=== PATIENT | female | born 1995 | race Hispanic/Latino ===

== ENCOUNTER 2021-07-06 22:08 | Inpatient (IN) | payer MEDICAID ==
[~2021-07-06] VITALS: Ht 165.1 cm; Wt 88.0 kg
[~2021-07-06 22:08] MED LIST: PREN-154 PO
[2021-07-06] MEDS ORDERED: ROPIVACAINE 0.2% 100ML VIAL 100 ML EP PRN (22:30)
[2021-07-06] MEDS ORDERED: NALOXONE HCL 0.4 MG/1 ML ML IV PRN (22:30)
[2021-07-06] MEDS ORDERED: PROMETHAZINE HCL 25 MG/ML 1ML AMPULE IM PRN (22:30)
[2021-07-06] MEDS ORDERED: MEPERIDINE-PF 50 MG/ML SYG IVP PRN (22:30)
[2021-07-06] MEDS ORDERED: LACTATED RINGERS 500 ML 500 ML IV PRN (22:30)
[2021-07-06] MEDS ORDERED: LACTATED RINGERS 1000ML 1,000 ML IV PRN (22:30)
[2021-07-06] MEDS ORDERED: EPHEDRINE SULFATE 50 MG/ML AMPULE IVP PRN (22:30)
[2021-07-06 23:04] LABS: APPEARANCE,URINE Clear (CLEAR); BILIRUBIN,URINE Negative (NEGATIVE); COLOR,URINE Yellow (YELLOW); GLUCOSE, URINE (UA) Negative (NEGATIVE); KETONES,URINE Negative (NEGATIVE); LEUKOCYTE ESTERASE ,URINE Small (NEGATIVE); NITRATE,URINE Negative (NEGATIVE); OCCULT BLOOD,URINE Negative (NEGATIVE); PROTEIN,URINE Negative (NEGATIVE)
[2021-07-06 23:19] LABS: BACTERIA,URINE None Seen /HPF (None Seen); MUCUS,URINE Few LPF (None Seen); RBC,URINE None Seen /HPF (0-1); SQUAMOUS EPITHELIAL CELL,UR Few /HPF (0-2); WBC,URINE 0-1 /HPF (0-1)
[2021-07-06 23:20] LABS: AMORPHOUS SEDIMENT,UR Few /LPF (None Seen)
[2021-07-06 23:31] LABS: HEMATOCRIT 29.6 % (36-48); MEAN CORPUSCULAR HEMOGLOBIN 22.9 pg (27.0-33.0); MEAN CORPUSCULAR HGB CONC 31.4 g/dL (32.0-36.0); MEAN CORPUSCULAR VOLUME 72.9 fL (79-99); PLATELET COUNT (AUTO) 376 K/uL (130-400); RED BLOOD CELL COUNT(AUTO) 4.06 MIL/uL (4.00-5.50); RED CELL DISTRIBUTION WIDTH 18.2 % (11.0-15.5); WHITE BLOOD COUNT (AUTO) 9.6 K/uL (4.8-10.8)
[2021-07-06 23:45] VITALS: BP 123/67
[2021-07-06] MEDS ORDERED: FERR-82 PO (23:49)
[2021-07-07] MEDS ORDERED: OXYTOCIN-LR 20 UNITS/1000 ML 1,000 ML IV SCH ×2 (04:00→09:30)
[2021-07-07] MEDS ORDERED: OXYTOCIN 10 USP UNITS/ML ONE (07:49)
[2021-07-07] MEDS ORDERED: METHYLERGONOVINE MALEATE 0.2 MG/1 ML ML ONE (07:50)
[2021-07-07] MEDS ORDERED: MISOPROSTOL 200 MCG TABLET ONE ×2 (07:50→09:12)
[2021-07-07] MEDS ORDERED: WITCH HAZEL 1 PAD TP PRN (09:30)
[2021-07-07] MEDS ORDERED: BENZOCAINE/LANOLIN/ALOE VERA 60 ML AEROSOL TP PRN (09:30)
[2021-07-07] MEDS ORDERED: MEASLES/MUMPS/RUBELLA VACCINE, LIVE 0.5 ML/VIAL SQ PRN (09:30)
[2021-07-07] MEDS ORDERED: ACETAMINOPHEN WITH CODEINE 1 TAB TAB PO PRN (09:30)
[2021-07-07] MEDS ORDERED: DIPH,PERTUSS(ACELL),TET VAC/PF 0.5 ML VIAL IM PRN (09:30)
[2021-07-07] MEDS ORDERED: ACETAMINOPHEN 325 MG TAB PO PRN (09:30)
[2021-07-07] MEDS ORDERED: LANOLIN 30GM OINTMENT TP PRN (09:30)
[2021-07-07 11:17] VITALS: BP 121/68
[2021-07-07] MEDS: IBUPROFEN 600 MG TABLET PO PRN ×2 (11:59→18:03)
[2021-07-07 16:39] VITALS: BP 110/68
[2021-07-07 20:10] VITALS: BP 112/74
[2021-07-07] MEDS: DOCUSATE SODIUM 100 MG CAP PO SCH (20:41)
[2021-07-07 22:50] VITALS: BP 118/67
[2021-07-08 03:04] VITALS: BP 108/80
[2021-07-08 06:30] LABS: MEAN CORPUSCULAR HEMOGLOBIN 22.8 pg (27.0-33.0); MEAN CORPUSCULAR HGB CONC 30.6 g/dL (32.0-36.0); MEAN CORPUSCULAR VOLUME 74.3 fL (79-99); RED BLOOD CELL COUNT(AUTO) 4.17 MIL/uL (4.00-5.50); RED CELL DISTRIBUTION WIDTH 18.3 % (11.0-15.5); WHITE BLOOD COUNT (AUTO) 12.7 K/uL (4.8-10.8)
[2021-07-08 07:27] VITALS: BP 112/72
[2021-07-08 08:15] LABS: HEPATITIS Bs ANTIGEN SCREEN P Negative (Negative)
[2021-07-08] MEDS: DOCUSATE SODIUM 100 MG CAP PO SCH (08:37)
[2021-07-08] MEDS: IBUPROFEN 600 MG TABLET PO PRN (08:38)
[2021-07-08 11:27] VITALS: BP 120/78
== END 2021-07-08 12:10 | disposition home or self-care (01) | DRG 560 ==
LOC: LDH 22:08 → WSH 07-07 11:15
PROVIDERS: ADMIT Obstetrics & Gynecology; ATTEND Obstetrics & Gynecology
PROC: 10E0XZZ Delivery of Products of Conception, External Approach (ICD-10-PCS; principal; 2021-07-07)
PROC: 6A550ZT Pheresis of Cord Blood Stem Cells, Single (ICD-10-PCS; 2021-07-07)
PROC: 10907ZC Drainage of Amniotic Fluid, Therapeutic from Products of Conception, Via Natural or Artificial Opening (ICD-10-PCS; 2021-07-07)
PROC: 3E033VJ Introduction of Other Hormone into Peripheral Vein, Percutaneous Approach (ICD-10-PCS; 2021-07-07)
DX: O80 Encounter for full-term uncomplicated delivery (principal); O69.1XX0 Labor and delivery complicated by cord around neck, with compression, not applicable or unspecified; Z37.0 Single live birth; Z3A.39 39 weeks gestation of pregnancy
CPT/HCPCS: 36415; 81001; 85027; 86592; 86850; 86900; 86901; 87340; G0378; J2175; J2210; J2550; J2590

== ENCOUNTER 2023-02-14 04:46 | Emergency (ER) | payer OTHER, MEDICAID ==
[~2023-02-14] VITALS: Ht 165.1 cm; Wt 92.1 kg
[~2023-02-14 04:46] MED LIST changes: +FERR-82 PO
[2023-02-14 05:19] LABS: BASOPHILS % (AUTO) 0.4 % (0.0-5.0); EOSINOPHILS % (AUTO) 4.5 % (0.0-8.0); HEMATOCRIT 40.7 % (36-48); LYMPHOCYTES % (AUTO) 36.4 % (21.0-51.0); MEAN CORPUSCULAR HEMOGLOBIN 25.9 pg (27.0-33.0); MEAN CORPUSCULAR HGB CONC 32.4 g/dL (32.0-36.0); MONOCYTES % (AUTO) 6.2 % (3.0-13.0); PLATELET COUNT (AUTO) 415 K/uL (130-400); RED BLOOD CELL COUNT(AUTO) 5.09 MIL/uL (4.00-5.50); RED CELL DISTRIBUTION WIDTH 14.5 % (11.0-15.5); WHITE BLOOD COUNT (AUTO) 11.4 K/uL (4.8-10.8)
[2023-02-14] MEDS ORDERED: ONDANSETRON 4MG INJ IVP ONE (05:30)
[2023-02-14] MEDS ORDERED: MORPHINE 2 MG SYG IVP ONE (05:30)
[2023-02-14 05:36] LABS: APPEARANCE,URINE CLEAR (CLEAR); BILIRUBIN,URINE NEGATIVE (NEGATIVE); COLOR,URINE LIGHT-YELLOW (YELLOW); CREATININE 0.8 mg/dL (0.5-1.5); GLUCOSE, URINE (UA) NEGATIVE (NEGATIVE); KETONES,URINE NEGATIVE (NEGATIVE); LEUKOCYTE ESTERASE ,URINE NEGATIVE Leu/uL (NEGATIVE); NITRATE,URINE NEGATIVE (NEGATIVE); OCCULT BLOOD,URINE NEGATIVE (NEGATIVE); POTASSIUM 3.5 mmol/L (3.5-5.1); PROTEIN,URINE 10 mg/dL (NEGATIVE); UROBILINOGEN,URINE 0.2 mg/dL (0.2-1.0)
[2023-02-14 05:41] LABS: ALBUMIN 3.9 g/dL (3.5-5.0); HCG,QUALITATIVE URINE NEGATIVE (NEGATIVE); TOTAL PROTEIN, SERUM 8.2 g/dL (6.0-8.3)
[2023-02-14 05:50] LABS: BACTERIA,URINE RARE /HPF (None Seen); MUCUS,URINE RARE LPF (None Seen); SQUAMOUS EPITHELIAL CELL,UR RARE /HPF (0-2); WBC,URINE 0-1 /HPF (0-1)
[2023-02-14 06:47] VITALS: BP 121/62
[2023-02-14] MEDS ORDERED: DICY20TA2 PO (06:49)
[2023-02-14] MEDS ORDERED: ONDA4TAB10 PO (06:49)
== END 2023-02-14 07:14 | disposition home or self-care (01) ==
LOC: EDH 04:46
DX: K80.50 Calculus of bile duct without cholangitis or cholecystitis without obstruction (principal)
CPT/HCPCS: 99285; 96374; 76705; 96375; 80053; 83690; 85025; 81001; 81025; 36415; J2405

== ENCOUNTER 2023-03-21 01:26 | Emergency (ER) | payer OTHER, MEDICAID ==
[~2023-03-21] VITALS: Ht 165.1 cm; Wt 91.6 kg
[~2023-03-21 01:26] MED LIST changes: +DICY20TA2 PO; +ONDA4TAB10 PO
[2023-03-21 01:53] LABS: BASOPHILS % (AUTO) 0.3 % (0.0-5.0); EOSINOPHILS % (AUTO) 5.2 % (0.0-8.0); HEMATOCRIT 39.5 % (36-48); LYMPHOCYTES % (AUTO) 32.2 % (21.0-51.0); MEAN CORPUSCULAR HEMOGLOBIN 26.2 pg (27.0-33.0); MEAN CORPUSCULAR HGB CONC 32.2 g/dL (32.0-36.0); MEAN CORPUSCULAR VOLUME 81.4 fL (79-99); MONOCYTES % (AUTO) 6.9 % (3.0-13.0); PLATELET COUNT (AUTO) 413 K/uL (130-400); RED BLOOD CELL COUNT(AUTO) 4.85 MIL/uL (4.00-5.50); RED CELL DISTRIBUTION WIDTH 14.5 % (11.0-15.5); WHITE BLOOD COUNT (AUTO) 14.7 K/uL (4.8-10.8)
[2023-03-21 01:59] LABS: HCG,QUALITATIVE URINE NEGATIVE (NEGATIVE)
[2023-03-21] MEDS ORDERED: ONDANSETRON 4MG INJ IVP ONE (02:00)
[2023-03-21 02:03] LABS: APPEARANCE,URINE CLEAR (CLEAR); COLOR,URINE Light-Yellow (YELLOW); GLUCOSE, URINE (UA) NEGATIVE (NEGATIVE); KETONES,URINE NEGATIVE (NEGATIVE); PROTEIN,URINE 30 mg/dL (NEGATIVE)
[2023-03-21 02:04] LABS: BILIRUBIN,URINE NEGATIVE (NEGATIVE); LEUKOCYTE ESTERASE ,URINE NEGATIVE Leu/uL (NEGATIVE); NITRATE,URINE NEGATIVE (NEGATIVE); OCCULT BLOOD,URINE NEGATIVE (NEGATIVE); UROBILINOGEN,URINE 0.2 mg/dL (0.2-1.0)
[2023-03-21 02:05] LABS: MUCUS,URINE RARE LPF (None Seen); RBC,URINE 0-1 /HPF (0-1); SQUAMOUS EPITHELIAL CELL,UR RARE /HPF (0-2); WBC,URINE 0-1 /HPF (0-1)
[2023-03-21 02:09] LABS: CREATININE 0.9 mg/dL (0.5-1.5); POTASSIUM 3.5 mmol/L (3.5-5.1)
[2023-03-21 02:13] LABS: ALBUMIN 4.1 g/dL (3.5-5.0); TOTAL PROTEIN, SERUM 8.2 g/dL (6.0-8.3)
[2023-03-21 05:27] VITALS: BP 129/65
[2023-03-21] MEDS ORDERED: LACTATED RINGERS 1000ML 1,000 ML IV SCH (05:30)
[2023-03-21] MEDS ORDERED: ACETAMINOPHEN 325 MG TAB PO PRN ×2 (05:30)
[2023-03-21] MEDS ORDERED: MORPHINE 2 MG SYG IV PRN (05:30)
[2023-03-21] MEDS ORDERED: ONDANSETRON 4MG INJ IV PRN (05:30)
[2023-03-21] MEDS ORDERED: MORPHINE 4 MG SYG IV PRN (05:30)
[2023-03-21 05:50] LABS: INR 0.94 (0.85-1.15); PROTHROMBIN TIME 10.3 SEC (9.6-11.6)
[2023-03-21 05:51] LABS: PARTIAL THROMBOPLASTIN TIME 29.6 SEC (26.3-35.5)
[2023-03-21 05:52] LABS: MAGNESIUM 1.9 mg/dL (1.80-2.40); PHOSPHORUS 3.9 mg/dL (2.5-4.9)
[2023-03-21] MEDS ORDERED: ENOXAPARIN SODIUM 40 MG/0.4 ML SYRINGE SQ SCH (09:00)
[2023-03-21] MEDS ORDERED: FAMOTIDINE 20MG VIAL IV SCH (09:00)
[2023-03-21] MEDS ORDERED: ZOSYN 3.375GM+NS 50ML 50 ML IVPB SCH (13:00)
== END 2023-03-21 05:46 | disposition home or self-care (01) ==
LOC: EDH 01:26
DX: K80.70 Calculus of gallbladder and bile duct without cholecystitis without obstruction (principal); D72.829 Elevated white blood cell count, unspecified; Z79.899 Other long term (current) drug therapy; Z98.890 Other specified postprocedural states
CPT/HCPCS: 99285; 96374; 76705; 83735; 84100; 80053; 83690; 85025; 85610; 85730; 81001; 81025; 36415; 84145; J2405

== ENCOUNTER 2023-04-14 08:39 | Day surgery (SDC) | payer OTHER, MEDICAID ==
[2023-04-12 09:44] LABS: BASOPHILS % (AUTO) 0.6 % (0.0-5.0); EOSINOPHILS % (AUTO) 5.8 % (0.0-8.0); HEMATOCRIT 39.6 % (36-48); LYMPHOCYTES % (AUTO) 25.7 % (21.0-51.0); MEAN CORPUSCULAR HEMOGLOBIN 26.3 pg (27.0-33.0); MEAN CORPUSCULAR HGB CONC 31.6 g/dL (32.0-36.0); MEAN CORPUSCULAR VOLUME 83.4 fL (79-99); NEUTROPHILS % (AUTO) 60.5 % (40.0-77.0); PLATELET COUNT (AUTO) 432 K/uL (130-400); RED BLOOD CELL COUNT(AUTO) 4.75 MIL/uL (4.00-5.50); RED CELL DISTRIBUTION WIDTH 14.8 % (11.0-15.5); WHITE BLOOD COUNT (AUTO) 8.1 K/uL (4.8-10.8)
[2023-04-12 09:51] LABS: APPEARANCE,URINE CLEAR (CLEAR); BILIRUBIN,URINE NEGATIVE (NEGATIVE); COLOR,URINE YELLOW (YELLOW); GLUCOSE, URINE (UA) NEGATIVE (NEGATIVE); KETONES,URINE NEGATIVE (NEGATIVE); LEUKOCYTE ESTERASE ,URINE NEGATIVE Leu/uL (NEGATIVE); NITRATE,URINE NEGATIVE (NEGATIVE); OCCULT BLOOD,URINE NEGATIVE (NEGATIVE); PH,URINE 5.5 (5.0-8.0); PROTEIN,URINE 10 mg/dL (NEGATIVE); UROBILINOGEN,URINE 0.2 mg/dL (0.2-1.0)
[2023-04-12 09:55] LABS: INR 0.99 (0.85-1.15); PROTHROMBIN TIME 10.8 SEC (9.6-11.6)
[2023-04-12 09:56] LABS: PARTIAL THROMBOPLASTIN TIME 28.5 SEC (26.3-35.5)
[2023-04-12 10:07] LABS: MUCUS,URINE FEW LPF (None Seen); SQUAMOUS EPITHELIAL CELL,UR RARE /HPF (0-2); WBC,URINE 0-1 /HPF (0-1)
[2023-04-12 10:08] VITALS: BP 118/67
[2023-04-14] VITALS (17 sets, daily range): BP systolic 105–117; BP diastolic 43–77
[~2023-04-14] VITALS: Ht 165.1 cm; Wt 90.6 kg
[2023-04-14] MEDS ORDERED: LACTATED RINGERS 1000ML 1,000 ML IV ONE (09:10)
[2023-04-14] MEDS ORDERED: CEFAZOLIN SODIUM 2 GM VIAL ONE (09:10)
[2023-04-14] MEDS ORDERED: NEOSTIGMINE 5MG/5ML SYR IV ONE (09:44)
[2023-04-14] MEDS ORDERED: ONDANSETRON 4MG INJ ONE ×2 (09:44→13:47)
[2023-04-14] MEDS ORDERED: SUCCINYLCHOLINE 200MG/10ML SYR ONE (09:44)
[2023-04-14] MEDS ORDERED: GLYCOPYRROLATE 1 MG/5 ML SYRINGE ONE (09:44)
[2023-04-14] MEDS ORDERED: LIDOCAINE PF 100MG/5ML (2%) SYRINGE 5ML ONE ×2 (09:44→09:47)
[2023-04-14] MEDS ORDERED: DEXAMETHASONE SOD PHOSPHATE 10MG/ML 1ML VIAL ONE (09:44)
[2023-04-14] MEDS ORDERED: PROPOFOL 10 MG/ML 20ML VIAL IV ONE (09:44)
[2023-04-14] MEDS ORDERED: FENTANYL CITRATE PF 50 MCG/1 ML 2ML VIAL ONE ×3 (09:45→14:12)
[2023-04-14] MEDS ORDERED: ROCURONIUM 10MG/1ML SYR 10 MG/ML ML ONE (09:45)
[2023-04-14] MEDS ORDERED: MIDAZOLAM HCL 1 MG/ML 2ML VIAL ONE (09:45)
[2023-04-14] MEDS ORDERED: INDOCYANINE GREEN 25 MG VIAL IJ ONE (10:25)
[2023-04-14] MEDS ORDERED: BUPIVACAINE/PF 0.5% 30ML VIAL INJ ONE (12:19)
[2023-04-14] MEDS ORDERED: BUPIVACAINE/PF 0.5% 30ML VIAL ONE (12:30)
[2023-04-14] MEDS ORDERED: CEFAZOLIN SODIUM 2 GM VIAL IVPB ONE (12:31)
[2023-04-14] MEDS ORDERED: MEPERIDINE-PF 25 MG/ML SYG ONE (13:47)
== END 2023-04-14 15:10 | disposition home or self-care (01) ==
LOC: DAH 08:39
PROVIDERS: ATTEND Student in an Organized Health Care Education/Training Program
DX: K80.10 Calculus of gallbladder with chronic cholecystitis without obstruction (principal); Z20.822 Contact with and (suspected) exposure to COVID-19; K82.8 Other specified diseases of gallbladder; Z98.51 Tubal ligation status; Z79.01 Long term (current) use of anticoagulants
CPT/HCPCS: 84703; 85025; 85610; 85730; 87426; 81001; 36415; 47562; 88304; A6260; A4663; J7030; J7120; J3010 ×3; J0330; J3490 ×3; J1100; J2710; J2001 ×2; J2250; J2704; J2405 ×2; J2175; J0690 ×2; C1769; A4649; A4215; A4223; A4222; A4221; S2900; A4600